=== PATIENT | male | born 1980 | race Two or more races ===

== ENCOUNTER 2016-10-04 00:05 | Emergency (ER) | payer OTHER ==
[~2016-10-04] VITALS: Ht 177.8 cm; Wt 115.0 kg
[2016-10-04 00:46] LABS: BLOOD UREA NITROGEN 21 mg/dL (7-18)
[2016-10-04 04:44] VITALS: BP 112/66
== END 2016-10-04 04:46 | disposition home or self-care (01) ==
LOC: ED 04:42
DX: F10.220 Alcohol dependence with intoxication, uncomplicated (principal)
CPT/HCPCS: 36415; 80048; 80307; 85025; 99284